=== PATIENT | male | born 1930 | race Caucasian/White ===

== ENCOUNTER → 2017-12-23 | Outpatient (CLI) | payer OTHER ==
[~2017-12-23] VITALS: Ht 182.9 cm; Wt 90.7 kg
[~2017-12-23] MED LIST: ACETAMINOPHEN-1 EAC1 PO; ALPRAZOLAM 0.0.25 M1 PO; AMBIEN 5 MG TABL5 M1 PO; ANACIN 400-321 EACH PO; ASPIRIN81 M2 PO; ATORVASTATIN CA20 MG PO; AVODART0.5 MG PO; BREO ELLIPTA 21 EACH INH; CARDIZEM CD120 MG PO; CLONIDINE0.1 PO; COLACE100 MG PO; COZAAR 25 MG TA25 M2 PO; DICLOFENAC SOD50 M1 PO; DICLOFENAC SODI25 MG PO; DILTIAZEM 24HR120 M2 PO; DILTIAZEM 24HR240 M2 PO; DURAGESIC25 MCG/HR TRANSDERM; FLOMAX0.4 MG PO; GABAPENTIN 100100 MG PO; HYDROCHLOROTH12.5 M1 PO; HYDROCODONE-ACE15 ML PO; KLOR-CON 1010 MEQ PO; LASIX 20 MG TAB20 MG PO; LOPRESSOR50 PO; METAMUCIL PACK1 EACH PO; NORCO 10-325 T1 EACH PO; NORVASC2.5 MG PO; NORVASC5 MG PO; PACERONE 200 M200 M1 PO; PACERONE200 MG PO; PANTOPRAZOLE SO40 M1 PO; PRAVACHOL40 MG PO; PREDNISONE 5 MG5 MG PO; PROTONIX40 M1 PO; RANITIDINE 150150 M1 PO; TRAMADOL 50 MG50 MG PO; VICODIN ES 7.51 EACH PO; XOPENEX 0.63 MG/3 M1 INH; ZYRTEC10 M5 PO
--- NOTE | ~2017-12-23 | HPC ---
[facility] [address] [place] [address] PAIN MANAGEMENT CONSULTATION Name: JIL LEES Room #: REG CHRISTINA .Amelie.#: [id number] Admission: 12/23/17 Attend Phys: Abiel Herbert MD Discharge: Date of : 11/[birth year] Report #: [id number] THIS REPORT FOR: //name// CC: Edis Herbert CHIEF COMPLAINT: Low back pain. Dr. Danielle has asked me to see the patient for lumbar facet injections at lumbar 3 and 4. He is an elderly gentleman who has complaints of back pain without radiation. It is across the lumbosacral segment. It is worse with standing, walking and is quite comfortable with sitting. He reports the pain with standing and walking is a 7-8/10. He has had various treatments in the past. Dr. Danielle is trying to avoid surgery in this elderly gentleman. MEDICATIONS: Ambien for sleep, Avodart, Flomax, Metamucil, Zyrtec, Cozaar, fluticasone, amlodipine, atorvastatin, pantoprazole, gabapentin, tramadol 50 mg, hydrocodone 10/325 twice daily as needed, Lasix, diclofenac 50 mg daily and Pacerone. Medications are provided through Dr. Villanueva's office. ALLERGIES: ALBUTEROL. PAST MEDICAL HISTORY: Lumbar surgery [place] [address]att, lumbar aortic aneurysm repair, hernia repair, colon resection and bladder repair in 2014, cervical diskectomy in 2017. REVIEW OF SYSTEMS: Positive for shortness of breath, dyspnea on exertion, frequent urination, incontinence and dribbling, nocturia, easily bruises. SOCIAL HISTORY: Denies use of tobacco or alcohol. 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 He has stopped working about a year and a half ago. He is 87 years of age at this point. He is . His is with him today as well as his daughter. It should be noted that he just quit smoking 3 years ago. PQRS review also notes that he is under treatment for hypertension. PHYSICAL EXAMINATION: This is a very pleasant 87-year-old gentleman. He is 6 feet tall, 200 pounds with a BMI of 27.1. Blood pressure is 170/90, heart rate 79, respirations 20, O2 sat 100. Pain intensity reported today is 9/10. He is a fall risk, using a walker and has difficulty with even short distances. He is under treatment for hypertension. Dr. Villanueva manages all his medications and no assessment tool or opioid contract was offered today. His functional assessment tool; however, was completed and scores at 39/70, suggesting fairly significant impact. [facility] [address] [place] [address] PAIN MANAGEMENT CONSULTATION Name: JIL LEES BORIS [facility] #: [facility] [id number] Admission: 12/23/17 Attend Phys: Abiel Herbert MD Discharge: Date of : 11/30/[birth year] Report #: [id number] IMPRESSION: Chronic low back pain with spondylosis. MRI also suggests that there is lumbar stenosis, but no evidence of neurogenic claudication. At Dr. Danielle's recommendation, I will perform a lumbar L3-L4 facet injection bilaterally. PROCEDURE: Bilateral L3-L4 facet injection. He was taken to fluoroscopic suite, placed prone, skin prepped with ChloraPrep. Skin anesthetized over the L3-L4 facet joint on each side. A #25 gauge spinal needle was advanced into the posterior inferior capsule at the most inferior aspect. After negative aspiration, I injected 0.25 mL of Omnipaque followed by 0.5 mL of 0.5% bupivacaine and 20 mg of triamcinolone into each joint. He tolerated the injections well. His pain score diminished to 0 in the recovery room. Followup visit is planned in 2-4 weeks. <ELECTRONICALLY SIGNED> By: Abiel Herbert MD 01/20/18 1408 [id number] Abiel Herbert MD /nt
[2017-12-23 14:45] VITALS: BP 170/90
== END | disposition home or self-care (01) ==
LOC: PAIN 09-25 09:50
DX: M47.816 Spondylosis without myelopathy or radiculopathy, lumbar region (principal); M54.5 Low back pain; G89.29 Other chronic pain; I10 Essential (primary) hypertension; M48.061 Spinal stenosis, lumbar region without neurogenic claudication; Z98.890 Other specified postprocedural states; Z88.8 Allergy status to other drugs, medicaments and biological substances; Z87.891 Personal history of nicotine dependence; Z79.899 Other long term (current) drug therapy; Z79.891 Long term (current) use of opiate analgesic

== ENCOUNTER → 2018-01-13 | Outpatient (CLI) | payer OTHER ==
[~2018-01-13] VITALS: Ht 182.9 cm; Wt 89.8 kg
[~2018-01-13] MED LIST changes: -DURAGESIC25 MCG/HR TRANSDERM; -HYDROCODONE-ACE15 ML PO; -PREDNISONE 5 MG5 MG PO; -VICODIN ES 7.51 EACH PO
--- NOTE | ~2018-01-13 | HPC ---
[facility] [address] [place] [address] PAIN MANAGEMENT CONSULTATION Name: JIL LEES Room #: REG CHRISTINA Sarah.#: [id number] Admission: 01/13/18 Attend Phys: Abiel Herbert MD Discharge: Date of : 11/30/28 Report #: [id number] THIS REPORT FOR: //name// CC: Edis Herbert DATE OF SERVICE: 01/13/2018 Followup visit for post-laminectomy syndrome, spinal stenosis, lumbar spondylosis and achy back. The patient did not respond very well to facet injections. We reviewed those shots and I looked at the anatomy and shared those pictures with him from his previous injection. Targets for radiofrequency would be extremely difficult to find and he did not respond to his initial injection. Rather than taking him down the road of multiple injections with what I would guess be a low likelihood of success with aggressive facet treatment, I have suggested that we approach this differently. He has had previous epidural injections, but by description, they have been above his scar, in extensive multilevel laminectomy. A caudal epidural injection performed below may be more helpful. It would provide medication into the epidural space and would allow us to advance medicine up along the scar tissue. Most of his pain, quite honestly, is below the scar and in the lumbosacral segment, despite what his x-rays may tell us about his most likely pain generator. Potential benefits and risks were reviewed and the utility of the shot will be based solely on the patient's response. The second thing we discussed is his medication. We had a lengthy discussion once again about the pros and cons of a variety of classes of medication. He does get relief from hydrocodone, with few side effects other than constipation. We focused on that today and we talked about Senokot-S as a treatment as well as movement. He uses a walker and he only has about 3-5 minutes of weightbearing activity before he is looking for a chair. He has a vascular stent, suggesting that he has also suffered from vascular claudication. Despite these setbacks, I think that he should work daily at weightbearing exercise. Even a walk as short as 3-4 minutes may do some benefit for his back pain as well as his vascular issues. He can repeat this as often as able. Cautions movements should not worsen him. He can take a pain medication in anticipation of some walking exercises. This will also help his constipation issue. PQRS REVIEW: Again, his BMI is 27. His blood pressure is 170/90, heart rate 79. He is using a walker and does have a fall risk, so needs to be cautious and he is under treatment for hypertension and is receiving opioids outside of our clinic. Denies use of tobacco or alcohol. PHYSICAL EXAMINATION: Exam of the back demonstrates a scar across the lower [facility] [address] [place] [address] PAIN MANAGEMENT CONSULTATION Name: JIL LEES BORIS Room #: REG CHRISTINA Gerardo#: [id number] Admission: 01/13/18 Attend Phys: Abiel Herbert MD Discharge: Date of : 11/30/[birth year] Report #: [id number] lumbar segment. There is localized tenderness below the lowest portion of the scar in the sacroiliac joints and along the facet joints. He has weakness in his legs and osteoarthritis noted bilaterally in the knees and hips. IMPRESSION: Chronic low back pain, post-laminectomy syndrome with spondylosis. There is spinal stenosis as well noted and scar tissue from his previous post-laminectomy syndrome. PROCEDURE: Epidural steroid injection, caudal approach. DESCRIPTION OF PROCEDURE: He was taken to fluoroscopic suite, placed prone, skin prepped with ChloraPrep. Skin anesthetized over the sacral hiatus. A 25-gauge needle was gently advanced into the caudal canal. This was then pulled and replaced by 22 Tuohy epidural needle. AP and lateral views were confirmed by injection of radiographic dye showing cephalad epidural space. This was followed by 10 mL of 0.5% lidocaine mixed with 80 mg of triamcinolone. He tolerated the procedure well, was observed for 45 minutes and discharged. Followup visit planned in 1-2 months. Further injections will depend upon response. By: [id number] Abiel Herbert MD /gray
[2018-01-13 09:51] VITALS: BP 134/95
== END | disposition home or self-care (01) ==
LOC: PAIN 07:16
DX: M47.816 Spondylosis without myelopathy or radiculopathy, lumbar region (principal); M48.061 Spinal stenosis, lumbar region without neurogenic claudication; M96.1 Postlaminectomy syndrome, not elsewhere classified; M54.5 Low back pain

== ENCOUNTER → 2018-04-07 | Outpatient (CLI) | payer OTHER ==
[~2018-04-07] VITALS: Ht 182.9 cm; Wt 89.7 kg
[~2018-04-07] MED LIST changes: +DURAGESIC25 MCG/HR TRANSDERM; +HYDROCODONE-ACE15 ML PO; +PREDNISONE 5 MG5 MG PO; +VICODIN ES 7.51 EACH PO
--- NOTE | ~2018-04-07 | HPC ---
[facility] [place] [address] PAIN MANAGEMENT CONSULTATION Name: JIL LESE Room #: REG CHRISTINA Sarah.#: [id number] Admission: 04/07/18 Attend Phys: Abiel Herbert MD Discharge: Date of : 11/30/[birth year] Report #: [id number] THIS REPORT FOR: //name// CC: Edis Herbert DATE OF SERVICE: 04/07/2018 Followup visit for persistent low back pain, radiation into the left hip and weakness. The patient is here today with his and his son. We had about a 30- to 40-minute consultation regarding his ongoing symptoms. He is 87 years old and is sad and discouraged that he is becoming more debilitated. What he would really love to do is get back up on a tractor. The riding would not be so bad, but he has marked weakness of the lower extremities and cannot mount the tractor. 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 He has lost some truncal stability. What really appears to be one of his biggest problems is weakness. Although they certainly go hand in hand, he has become markedly weak and has had extensive lumbar and cervical spine surgery. He has also had compression fractures with kyphoplasties. It is highly likely that he has suffered some degree of spinal injury with his stenosis and compression. It appears that his weakness and lower extremity atrophy may be part of a complex of myelopathy. Current medications for pain include Duragesic 25 mcg q. 72 hours and hydrocodone 7.5/325 one tablet to one half tablet as needed up to 3 times a day, gabapentin 100 mg 2 tablets at bedtime. He also is on prednisone, amiodarone, diclofenac, Lasix, pantoprazole, atorvastatin, amlodipine, fluticasone, Cozaar, Zyrtec, Flomax, Avodart, Ambien, Metamucil. ALLERGIES: ALBUTEROL. PHYSICAL EXAMINATION: GENERAL: He is a bright-eyed pleasant 87-year-old. VITAL SIGNS: Blood pressure 159/99, heart rate 75, respirations 18. He is 6 feet tall, 182 pounds, BMI is 26.8. He cannot get out of the chair without pushing himself up with his arms. His upper body strength is quite good. MUSCULOSKELETAL: He walks with very short measured steps and has a definite fall risk. He has tenderness about the cervical spine where he has had previous surgery and also a large lumbar thoracic scar that extends from the upper lumbar region into the sacral. Tenderness along the scar. Tenderness along the facet [address] [address] PAIN MANAGEMENT CONSULTATION Name: JIL LEES BORIS Room #: [facility] [id number] Admission: 04/07/18 Attend Phys: Abiel Herbert MD Discharge: Date of : 11/30/[birth year] Report #: [id number] joints. Tenderness also in the sacroiliac joint, worse in the right than left. He has notable atrophy of the lower extremities. Calf, quadriceps and hamstring muscles all weak and decreased in size and volume. I can touch my fingers around his upper leg. Sensation to pinprick is intact. Deep tendon reflexes are 2 to 3+ in the lower extremities at the knees, 1+ at the ankles. He has bilateral edema. Pulses are poorly palpable. IMPRESSION: 1. Chronic low back pain, post laminectomy syndrome and spondylosis. Previous laminectomy and cervical spine for spinal stenosis with likely some degree of coexisting myelopathy. 2. Vascular claudication. 3. Weakness related to the above. 4. Management of high risk medications. RECOMMENDATIONS: 1. I have suggested that we continue fentanyl patch at 25 mcg and use hydrocodone for breakthrough and the concepts of baseline and breakthrough as well as proper times to take medication were reviewed in detail. 2. Consider a LSO brace for trunk stability or muscle weakness. The brace has been ordered. 3. Follow up in 3 months. By: [id number] Abiel Herbert MD /nt
[2018-04-07 11:15] VITALS: BP 159/99
== END ==
LOC: PAIN 06:40
DX: M47.896 Other spondylosis, lumbar region (principal); I73.9 Peripheral vascular disease, unspecified; G89.29 Other chronic pain; M25.552 Pain in left hip; R53.1 Weakness; Z79.899 Other long term (current) drug therapy